=== PATIENT | male | born 2000 | race Caucasian/White ===

== ENCOUNTER 2021-01-15 22:30 | Emergency (ER) | payer BC ==
[~2021-01-15] VITALS: Ht 167.6 cm; Wt 93.0 kg
[~2021-01-15 22:30] MED LIST: VYVANSE60 MG PO; [UNRECOGNIZED DRUG - OTHER] PO
[2021-01-15] MEDS ORDERED: TYLENOL # 31 EA PO (23:42)
== END 2021-01-16 00:21 | disposition home or self-care (01) ==
LOC: ER 22:40
DX: S92.344A Nondisplaced fracture of fourth metatarsal bone, right foot, initial encounter for closed fracture (principal); S92.354A Nondisplaced fracture of fifth metatarsal bone, right foot, initial encounter for closed fracture; X58.XXXA Exposure to other specified factors, initial encounter
CPT/HCPCS: 99283